=== PATIENT | female | born 1970 | race Caucasian/White ===

== ENCOUNTER 2019-02-14 09:05 | Emergency (ER) | payer OTHER, SELFPAY ==
--- NOTE | 2019-02-14 09:08 | W.ED.GENAD ---
Discharge Plan Disposition Patient Disposition: HOME Condition: Stable Discharge Details Chief Complaint: Laceration Clinical Impression: Multiple lacerations Primary Care Provider: PA JANSEN ED Provider: Jayda Sin Home Meds and New Rx's Prescriptions: No Action No Known Home Meds RF: 0 Discharge Instructions Instructions: Diphtheria/Acellular Pertussis/Tetanus Booster Vaccine (Tdap) (Injection), Laceration (ED) Additional Instructions: Please return immediately to the emergency department if you develop any new or worsening symptoms or if you become otherwise concerned. It is extremely important that you make an appointment to be seen as soon as possible and follow-up by your primary care doctor. You will need to have your stitches removed in 10 days. Referrals: PA JANSEN [Primary Care Provider] - Medical Decision Making Michelle Jackson is a 48 y/o woman without history of medical problems who presents to the emergency department with superficial 1 cm lacerations to the fourth and fifth digits of the left hand area. On exam lacerations are superficial, there is no tendon involvement, there is no apparent foreign body, and distal aspect of the digits are neurovascularly intact. There are no other injuries. Radial pulses are intact and symmetric. Plan for tetanus update (patient does not recall when last tetanus shot was) and laceration repair. See procedure note. Digital block was used in fourth and fifth digits of the left hand, wounds were copiously irrigated under pressure, and lacerations were repaired. I had a lengthy discussion with the patient regarding return to emergency department cautions, home care, and importance of outpatient follow-up with her PCP. Patient was discharged to home with a clear plan for follow-up. She verbalized understanding of the plan and was amenable. All questions were answered. Medical Records Medical records reviewed: Yes I reviewed the patient's medical records. HPI General Mode of arrival: ambulatory. Date/Time Provider Initiated Documentation: 02/14/19 09:07. Limitations to Documentation: no limitations. Information obtained by: patient, RN notes reviewed and old records reviewed. HPI Narrative: Michelle Jackson is a 48 y/o woman without history of medical problems presenting to the emergency department lacerations. Patient reports that she was moving a ceramic/stoneware dish, when the dish cracked and she cut the fourth and fifth digits of her left hand. No other injuries, bleeding controlled. Patient reports no symptoms prior to the incident, has been feeling well in her usual state of health. Unsure of her last tetanus shot, thinks it was likely greater than 5 years ago. Related Data Home Medications Medication Instructions Recorded Confirmed Unknown [No Known Home Meds] 05/12/15 02/14/19 Allergies Allergy/AdvReac Type Severity Reaction Status Date / Time Seasonal Allergies Allergy Uncoded 02/14/19 09:12 Review of Systems Review of Systems Constitutional: denies fevers Eyes: denies eye pain ENT: denies facial pain, dental pain, sore throat Cardiovascular: denies chest pain Respiratory: denies SOB GI: denies abdominal pain, vomiting, diarrhea : denies flank pain MSK: denies back pain, neck pain, arthralgias, myalgias Neuro: denies headaches, numbness/tingling PFSH Surgical History 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 Endometrial Ablation Ligation of fallopian tube Social History Smoking/Tobacco Use Status: Never Drug use: Never Substance use type: does not use Do you feel safe at home: Yes Do you feel safe in your relationship?: Yes Exam Narrative Exam Narrative: Constitutional: well and [id number], pleasant, conversing normally HENT: head atraumatic/normocephalic/normal inspection, mucous membranes moist Eyes: conjunctiva normal, sclera normal, pupils 3mm b/l Neck: no stridor, normal ROM, trachea midline Resp: normal work of breathing Cardio: normal rate, normal rhythm Skin: warm, dry, normal color, no rash Neuro: alert, not altered, grossly non-focal, normal tone Ext: left hand with one laceration across the palmar aspect of fourth digit at PIP joint and one laceration across palmar aspect of the fifth digit at the PIP joint, each 1 cm and superficial, minimal bleeding. FDS and FDP intact. Normal cap refill, normal sensation distal to wounds. Psych: normal mood, normal affect, normal behavior Procedures Laceration Laceration 1: Site: hand Side (If applicable): left Size (cm): 1 Description: linear Depth: simple, single layer Local Anesthetic: Lidocaine 1% Amount of anesthesia used (mL): 2 Pre-repair: wound explored, irrigated extensively and deep structures intact Skin layer closed with: other (proline) Size (cm): 4-0 Number of sutures: 2 Technique: simple, interrupted Laceration 2: Site: hand Side (If applicable): left Size (cm): 1 Description: linear Depth: simple, single layer Local Anesthetic: Lidocaine 1% Amount of anesthesia used (mL): 2 Pre-repair: wound explored, irrigated extensively and deep structures intact Skin layer closed with: other (proline) Size (cm): 4-0 Number of sutures: 3 Technique: simple, interrupted
[2019-02-14 09:10] VITALS: BP 137/71; PULSE 87; RESP 20; TEMP 36.8; O2SAT 97
--- NOTE | 2019-02-14 09:21 | DI.RAD_ITS ---
SYMPTOM/DIAGNOSIS: LACERATIONS HAND LEFT HAND: No fracture or foreign body is seen. IMPRESSION: Negative left hand.
--- NOTE | 2019-02-14 09:37 | ED.GENADUL_ITS ---
Discharge Plan Disposition Patient Disposition: HOME Condition: Stable Discharge Details Chief Complaint: Laceration Clinical Impression: Multiple lacerations Primary Care Provider: PA JANSEN ED Provider: Jayda Sin Home Meds and New Rx's Prescriptions: No Action No Known Home Meds RF: 0 Discharge Instructions Instructions: Diphtheria/Acellular Pertussis/Tetanus Booster Vaccine (Tdap) (Injection), Laceration (ED) Additional Instructions: Please return immediately to the emergency department if you develop any new or worsening symptoms or if you become otherwise concerned. It is extremely important that you make an appointment to be seen as soon as possible and follow-up by your primary care doctor. You will need to have your stitches removed in 10 days. Referrals: PA JANSEN [Primary Care Provider] - Medical Decision Making Michelle Jackson is a 48 y/o woman without history of medical problems who presents to the emergency department with superficial 1 cm lacerations to the fourth and fifth digits of the left hand area. On exam lacerations are superficial, there is no tendon involvement, there is no apparent foreign body, and distal aspect of the digits are neurovascularly intact. There are no other injuries. Radial pulses are intact and symmetric. Plan for tetanus update (patient does not recall when last tetanus shot was) and laceration repair. See procedure note. Digital block was used in fourth and fifth digits of the left hand, wounds were copiously irrigated under pressure, and lacerations were repaired. I had a lengthy discussion with the patient regarding return to emergency department cautions, home care, and importance of outpatient follow-up with her PCP. Patient was discharged to home with a clear plan for follow-up. She verbalized understanding of the plan and was amenable. All questions were answered. Medical Records Medical records reviewed: Yes I reviewed the patient's medical records. HPI General Mode of arrival: ambulatory . Date/Time Provider Initiated Documentation: 02/14/19 09:07 . Limitations to Documentation: no limitations . Information obtained by: patient, RN notes reviewed and old records reviewed . HPI Narrative: Michelle Jackson is a 48 y/o woman without history of medical problems presenting to the emergency department lacerations. Patient reports that she was moving a ceramic/stoneware dish, when the dish cracked and she cut the fourth and fifth digits of her left hand. No other injuries, bleeding controlled. Patient reports no symptoms prior to the incident, has been feeling well in her usual state of health. Unsure of her last tetanus shot, thinks it was likely greater than 5 years ago. Related Data Home Medications Medication Instructions Recorded Confirmed Unknown [No Known Home Meds] 05/12/15 02/14/19 Allergies Allergy/AdvReac Type Severity Reaction Status Date / Time Seasonal Allergies Allergy Uncoded 02/14/19 09:12 Review of Systems Review of Systems Constitutional: denies fevers Eyes: denies eye pain ENT: denies facial pain, dental pain, sore throat Cardiovascular: denies chest pain Respiratory: denies SOB GI: denies abdominal pain, vomiting, diarrhea : denies flank pain MSK: denies back pain, neck pain, arthralgias, myalgias Neuro: denies headaches, numbness/tingling PFSH Surgical History 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 Endometrial Ablation Ligation of fallopian tube Social History Smoking/Tobacco Use Status: Never Drug use: Never Substance use type: does not use Do you feel safe at home: Yes Do you feel safe in your relationship?: Yes Exam Narrative Exam Narrative: Constitutional: well and [id number], pleasant, conversing normally HENT: head atraumatic/normocephalic/normal inspection, mucous membranes moist Eyes: conjunctiva normal, sclera normal, pupils 3mm b/l Neck: no stridor, normal ROM, trachea midline Resp: normal work of breathing Cardio: normal rate, normal rhythm Skin: warm, dry, normal color, no rash Neuro: alert, not altered, grossly non-focal, normal tone Ext: left hand with one laceration across the palmar aspect of fourth digit at PIP joint and one laceration across palmar aspect of the fifth digit at the PIP joint, each 1 cm and superficial, minimal bleeding. FDS and FDP intact. Normal cap refill, normal sensation distal to wounds. Psych: normal mood, normal affect, normal behavior Procedures Laceration Laceration 1: Site: hand Side (If applicable): left Size (cm): 1 Description: linear Depth: simple, single layer Local Anesthetic: Lidocaine 1% Amount of anesthesia used (mL): 2 Pre-repair: wound explored, irrigated extensively and deep structures intact Skin layer closed with: other (proline) Size (cm): 4-0 Number of sutures: 2 Technique: simple, interrupted Laceration 2: Site: hand Side (If applicable): left Size (cm): 1 Description: linear Depth: simple, single layer Local Anesthetic: Lidocaine 1% Amount of anesthesia used (mL): 2 Pre-repair: wound explored, irrigated extensively and deep structures intact Skin layer closed with: other (proline) Size (cm): 4-0 Number of sutures: 3 Technique: simple, interrupted
[2019-02-14 17:27] VITALS: BP 137/71; PULSE 87; RESP 20; TEMP 36.8; O2SAT 97
== END 2019-02-14 10:48 | disposition home or self-care (01) ==
PROVIDERS: Emergency Provider Student in an Organized Health Care Education/Training Program; PCP Nurse Practitioner Adult Health
DX: S61.215A Laceration without foreign body of left ring finger without damage to nail, initial encounter (principal); S61.217A Laceration without foreign body of left little finger without damage to nail, initial encounter; W45.8XXA Other foreign body or object entering through skin, initial encounter
CPT/HCPCS: 12001; 90471; 99283; 73130; 99282

== ENCOUNTER 2019-02-16 20:27 | Emergency (ER) | payer OTHER, SELFPAY ==
[2019-02-16 20:30] VITALS: BP 145/68; PULSE 70; RESP 16; TEMP 36.5; O2SAT 99
--- NOTE | 2019-02-16 20:58 | ED.GENADUL_ITS ---
Discharge Plan Disposition Patient Disposition: HOME Condition: Stable Discharge Details Chief Complaint: Recheck Clinical Impression: Encounter for re-check of laceration wound Primary Care Provider: PA JANSEN ED Provider: Kurt Luna Home Meds and New Rx's Prescriptions: No Action No Known Home Meds RF: 0 Discharge Instructions Instructions: Acute Wound Care (ED) Additional Instructions: Continue to perform appropriate care of your lacerations as you have been doing due to wound appearing appropriate and healing well. Please follow-up as instructed previously for suture removal or return emergently for any new or significant worsening of symptoms Referrals: [facility] Emergency Dept. [Outside] (As recommended for suture removal or for any new or significant worsening symptoms) Discharge Data Discharge Date/Time-TO BE ENTERED AT DEPARTURE: 02/16/19 21:01 Medical Decision Making Patient presenting the emergency department for recheck of wound. Patient states laceration that occurred 2 days ago and came to the emergency department sutures were placed. Today she remove bandages and noted some blue color to her fingers. Patient called and was instructed to come to the emergency department for reevaluation. Evaluation of the laceration show appropriately healing wounds to the fourth and fifth digits of the left hand with some ecchymosis surrounding the base. Otherwise there is appropriate movement and sensation noted to the area. Patient does state slight tingling but does have two-point discrimination and light touch is intact. I feel that this is more secondary to some swelling but otherwise I do not feel that there are any emergent findings. Capillary refill is appropriate also in these digits. Patient was encouraged to continue to perform appropriate wound care and to return as previously instructed for signs of infection or for suture removal. HPI General Mode of arrival: ambulatory . Date/Time Provider Initiated Documentation: 02/16/19 20:36 . Limitations to Documentation: no limitations . Information obtained by: patient and RN notes reviewed . History of Present Illness 48 year old F presents to the emergency department with the chief complaint of Wound check, Quality is described as other (Denies pain), and is localized to the left and upper extremity. Patient started experiencing this day(s) (2) and it has been constant. Patient notes no other symptoms.. 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 Endometrial Ablation Ligation of fallopian tube Social History Smoking/Tobacco Use Status: Never Drug use: Never Substance use type: does not use Do you feel safe at home: Yes Do you feel safe in your relationship?: Yes Exam Const General: cooperative, no acute distress and not ill appearing Orientation: alert, awake and oriented x3 Resp Effort & Inspection: normal respiratory effort, able to speak in complete sentences and no respiratory distress Cardio Rate: regular rate Rhythm: regular rhythm Pulses: radial pulses present Skin Trauma: laceration (Appropriately healing wounds to fourth and fifth digits of left hand ) and other (Ecchymosis to base of fourth and fifth digits left hand) Neuro General: alert, awake, oriented x3, moves all extremities and no focal motor deficits Extrem General: normal exam except as noted Course Vital Signs Temperature 36.5 C 02/16/19 20:30 Pulse 70 02/16/19 20:30 Respiratory Rate 16 02/16/19 20:30 Blood Pressure 145/68 H 02/16/19 20:30 Pulse Oximetry 99 02/16/19 20:30 Temperature 36.5 C 02/16/19 20:30 Temperature Source Skin 02/16/19 20:30 Pulse 70 02/16/19 20:30 Respiratory Rate 16 02/16/19 20:30 Respiratory Effort Non-Labored 02/16/19 20:33 Blood Pressure 145/68 H 02/16/19 20:30 Blood Pressure Position Sitting 02/16/19 20:30 Pulse Oximetry 99 02/16/19 20:30 Oxygen Delivery Method Room Air 02/16/19 20:30 Oxygen Flow Rate 0 02/16/19 20:30
== END 2019-02-16 21:01 | disposition home or self-care (01) ==
PROVIDERS: Emergency Provider Nurse Practitioner Family; PCP Nurse Practitioner Adult Health
DX: S61.215D Laceration without foreign body of left ring finger without damage to nail, subsequent encounter (principal); S61.217D Laceration without foreign body of left little finger without damage to nail, subsequent encounter; W45.8XXD Other foreign body or object entering through skin, subsequent encounter

== ENCOUNTER 2019-02-24 09:29 | Emergency (ER) | payer OTHER, SELFPAY ==
[2019-02-24 09:31] VITALS: BP 108/72; PULSE 79; RESP 20; TEMP 36.5; O2SAT 99
--- NOTE | 2019-02-24 09:35 | ED.GENADUL_ITS ---
Discharge Plan Disposition Patient Disposition: HOME Condition: Stable Discharge Details Chief Complaint: SutureRem Clinical Impression: Visit for suture removal Primary Care Provider: PA JANSEN ED Provider: Carmen Arizmendi Home Meds and New Rx's Prescriptions: No Action No Known Home Meds RF: 0 Discharge Instructions Instructions: Stitches Removal (ED) Additional Instructions: Keep wound clean, dry and intact. Wash with soap and water. Apply topical antibiotic ointment to the area with any signs of redness, pain or swelling. Follow-up with primary care doctor in 1 week for reevaluation as needed. Return immediately to the emergency department with any worsening or new concerning symptoms. Discharge Data Discharge Physician: Carmen Arizmendi Medical Decision Making 48-year-old female who presents with suture removal of left fourth and fifth fingers for lacerations placed 10 days ago. 2 Prolene sutures noted in place left fourth finger and 3 Prolene sutures noted in place of left fifth finger. No signs of infection. Wound is healing very well. Neurovascularly intact. Sutures removed at bedside by nurse. Wounds were dressed with Band-Aid. Patient instructed to follow-up with the primary care doctor for reevaluation as needed. She was instructed on the importance of good wound care as the wound is most vulnerable at this time. She is instructed to return here immediately with any signs of significant infection such as fever, significant redness, pain, swelling or red line/streaking. Medical Records Medical records reviewed: Yes I reviewed the patient's medical records. HPI General Mode of arrival: ambulatory . Date/Time Provider Initiated Documentation: 02/24/19 09:29 . Limitations to Documentation: no limitations . Information obtained by: patient . HPI Narrative: Patient is a 48-year-old female who presents to the ED for suture removal of left fourth and fifth fingers. Patient was seen here 10 days ago after sustained lacerations to her left fourth and fifth fingers while handing a ceramic dish which broke. Patient was seen here 2 days after her suture placement for wound check. Patient states the wound is been healing well since that time and denies any fever, redness, pain or swelling. 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 Endometrial Ablation Ligation of fallopian tube Social History Smoking/Tobacco Use Status: Never Drug use: Never Substance use type: does not use Do you feel safe at home: Yes Do you feel safe in your relationship?: Yes Exam Const General: cooperative, healthy appearing and no acute distress HENMT Head: normal to inspection Mouth: oral mucosae normal Eyes General: appearance normal, both eyes and all related structures Neck Neck: normal visual inspection Resp Effort & Inspection: normal respiratory effort and able to speak in complete sentences Cardio Rate: regular rate Skin General skin exam: no rashes or lesions noted Neuro General: alert, awake and oriented x3 Motor: muscle tone normal throughout Extrem Other: 2 Prolene sutures noted on the volar aspect of left fourth finger middle phalange and 3 Prolene sutures noted in place on on her volar aspect of left fifth finger PIP joint. No ecchymosis, erythema, edema. Full range of motion. Cap refill less than 2 seconds. Psych Appearance: grossly normal Affect: normal affect Course Vital Signs Temperature 97.7 F 02/24/19 09:31 Pulse 79 02/24/19 09:31 Respiratory Rate 20 02/24/19 09:31 Blood Pressure 108/72 02/24/19 09:31 Pulse Oximetry 99 02/24/19 09:31 Temperature 97.7 F 02/24/19 09:31 Temperature Source Temporal Artery Scan 02/24/19 09:31 Pulse 79 02/24/19 09:31 Respiratory Rate 20 02/24/19 09:31 Respiratory Effort Non-Labored 02/24/19 09:31 Blood Pressure 108/72 02/24/19 09:31 Pulse Oximetry 99 02/24/19 09:31 Oxygen Delivery Method Room Air 02/24/19 09:31 Oxygen Flow Rate 0 02/24/19 09:31 Pain Level 0 02/24/19 09:31
[2019-02-24 09:38] VITALS: BP 108/72; PULSE 79; RESP 20; TEMP 36.5; O2SAT 99
== END 2019-02-24 09:55 | disposition home or self-care (01) ==
LOC: ER 10:06
PROVIDERS: Emergency Provider Physician Assistant; PCP Nurse Practitioner Adult Health
DX: S61.215D Laceration without foreign body of left ring finger without damage to nail, subsequent encounter (principal); S61.217D Laceration without foreign body of left little finger without damage to nail, subsequent encounter; W45.8XXD Other foreign body or object entering through skin, subsequent encounter; Z48.02 Encounter for removal of sutures

== ENCOUNTER 2019-03-31 01:10 | Outpatient (CLI) | payer OTHER, SELFPAY ==
--- NOTE | 2019-03-31 09:52 | DI.RAD_ITS ---
SYMPTOM/DIAGNOSIS: NAUSEA, EPIGASTRIC PAIN, ABNORMAL ANATOMY OF FUNDUS R11.0 R10.13 UPPER GI SERIES: Fluoroscopy Time: 1:51 Routine examination was performed. Preliminary abdominal x-ray shows moderate amount of retained stool throughout the colon. There is a left convex scoliotic curvature of the thoracolumbar spine. Upper GI was performed according to the protocol. There is normal swallowing mechanism. No gastroesophageal reflux seen. No intrinsic or extrinsic masses, ulcers or strictures seen in the esophagus. No intrinsic or extrinsic asses are seen in the stomach. No evidence of gastric outlet obstruction seen. The proximal duodenum has a normal location and appearance. There is rapid transit through the small bowel. Images of the cecum and ascending colon were visualized during the examination. Transit time appears less than 20 minutes. IMPRESSION: No definite mass, ulcer or stricture on this upper GI examination.
[2019-03-31] MEDS: Barium Sulfate 60% W/V 355 ML BTL PO (11:08)
== END 2019-03-31 01:30 ==
PROVIDERS: PCP Nurse Practitioner Adult Health; Visit Provider Internal Medicine Gastroenterology
DX: R10.13 Epigastric pain (principal); R11.0 Nausea
CPT/HCPCS: 74247; J3490